=== PATIENT | male | born 1980 | race Caucasian/White ===

== ENCOUNTER 2016-07-16 17:58 | Emergency (ER) | payer OTHER ==
[~2016-07-16] VITALS: Ht 172.7 cm; Wt 109.7 kg
[~2016-07-16 17:58] MED LIST: FIORTAB4 PO; Z.0.NO CURRENT MEDS
[2016-07-16 18:03] VITALS: BP 135/88; PULSE 85; RESP 18; TEMP 99; O2SAT 99
--- NOTE | 2016-07-16 18:09 | PD ---
HPI Chief Complaint: Foreign Body Time Seen by Provider: 18:09 Travel History International Travel<30 days: No Contact w/Intl Traveler<30days: No Traveled to known affect area: No History of Present Illness HPI 36-year-old male presents to the ED for evaluation of foreign body sensation of the right eye. Onset approximately noon today. 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 He notes a dark spot on the edge of the-colored part of his eye that is not normally there. He endorses increased tearing. Denies vision changes, headache, dizziness, pain with ocular motions, nausea or vomiting. He flushed the eye with water, saline drops and Visine with no improvement of symptoms. [facility] Past Medical History Medical History: Denies Significant Hx Diminished Hearing: No Immunizations Current: Yes Tetanus Vaccination: > 5 Years Influenza Vaccination: No Past Surgical History Surgical History: No Previous Surgery Social History Alcohol Use: No Tobacco Use: Yes (occ) Substance Use: No Allergies-Medications (Allergen,Severity, Reaction): Coded Allergies: No Known Allergies (Unverified , 07/16/16) Reported Meds & Prescriptions Reported Meds & Active Scripts Active Polytrim Opth Drops (Polymyxin/Trimethoprim Sulfate) 10,000-0.1 Unit/Ml-% Soln 1 Drop RIGHT EYE Q6HR 5 Days Review of Systems Except as stated in HPI: all other systems reviewed are Neg Physical Exam Narrative GENERAL: Well-nourished, well-developed white male in no acute distress. SKIN: Focused skin assessment warm/dry. HEAD: Normocephalic. EYES: No scleral icterus. OD: Mildly injected with increased tearing. PERRLA. EOMI. There is a miniscule foreign body visible on the edge of the iris and the 7 o'clock position. FUNDUSCOPIC EXAM: The RIGHT funduscopic exam appeared within normal limits without papilledema, A-V nicking or blood associated with the optic disc. Fluorescein staining reveals uptake in the area of the foreign body. NECK: Supple, trachea midline. No JVD or lymphadenopathy. CARDIOVASCULAR: Regular rate and rhythm without murmurs, gallops, or rubs. RESPIRATORY: Breath sounds equal bilaterally. No accessory muscle use. GASTROINTESTINAL: Abdomen soft, non-tender, nondistended. MUSCULOSKELETAL: No cyanosis, or edema. Patient is ambulatory and moves the extremities spontaneously. BACK: Nontender without obvious deformity. No CVA tenderness. Data Data Last Documented VS Vital Signs Date Time Temp Pulse Resp B/P Pulse Ox O2 Delivery O2 Flow Rate FiO2 07/16/16 18:03 99.0 85 18 135/88 99 MDM Medical Decision Making Medical Screen Exam Complete: Yes Emergency Medical Condition: Yes Differential Diagnosis Foreign body versus corneal abrasion versus hordeolum versus other Narrative Course 36-year-old male presents to the ED for evaluation of foreign body sensation of the right eye. Onset approximately noon today. 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 He notes a dark spot on the edge of the-colored part of his eye that is not normally there. He endorses increased tearing. Denies vision changes, headache, dizziness, pain with ocular motions, nausea or vomiting. He flushed the eye with water, saline drops and Visine with no improvement of symptoms. Vitals reviewed. Physical exam reveals right eye is mildly injected with increased tearing. PERRLA. EOMI. There is a nonmetallic miniscule foreign body visible on the edge of the iris and the 7 o'clock position. Funduscopic exam appeared within normal limits without papilledema, A-V nicking or blood associated with the optic disc. Fluorescein staining reveals uptake in the area of the foreign body. Foreign body removal was performed. Please my procedure note for details. Patient has a miniscule corneal abrasion. He is prescribed Polytrim one drop 4 times a day 3-5 days. He is instructed to instill the medication as prescribed, return for worsening symptoms, otherwise follow up with the agronomy advisor. He indicated understanding of the instructions and is agreeable to the care plan. He is stable and discharged home. Procedures Procedure Narrative Foreign body removal: Single drop of proparacaine was instilled into the right eye. A Q-tip was used to gently remove a minuscule foreign body from the 7 o' clock position of the outer edge of the iris. Fluorescein staining reveals a 1mm corneal abrasion in the same area. The eye was flushed with copious irrigation. Patient tolerated procedure well. Diagnosis Primary Impression: Corneal abrasion, right Qualified Code: S05.01XA - Corneal abrasion, right, initial encounter Additional Impressions: FOREIGN BODY IN CORNEA, RIGHT EYE, INITIAL ENCOUNTER History of retained foreign body fully removed Referrals: Manager Transit Patient Instructions: Corneal Abrasion (ED), Eye Foreign Body (ED), General Instructions Additional Instructions: Rest, hydrate. Instill Polytrim drops 1 drop every 6 hours for the next 3-5 days. Follow-up with the agronomy advisor. Return to the ED if your symptoms do not improve within 24 hours. Return to the ED for any urgent or emergent medical condition. Med/Other Pt SpecificInfo: Prescription(s) given Scripts Polymyxin B-Trimethoprim Opth Drops (Polytrim Opth Drops)10,000-0.1 Unit/Ml-% Soln1 Drop RIGHT EYE Q6HR 5 Days Ref 0 Prov:William Ramirez MD 07/16/16 Disposition: 01 DISCHARGE HOME Condition: Stable Maria Isabel Rodriguez Jul 16, 2016 18:09
[2016-07-16] MEDS ORDERED: POLY10O RIGHT EYE (18:24)
== END 2016-07-16 19:14 | disposition home or self-care (01) ==
LOC: PHEFT 17:58
DX: T15.01XA Foreign body in cornea, right eye, initial encounter (principal); S00.251A Superficial foreign body of right eyelid and periocular area, initial encounter; Z72.0 Tobacco use; X58.XXXA Exposure to other specified factors, initial encounter; Y99.0 Civilian activity done for income or pay
CPT/HCPCS: 65220

== ENCOUNTER 2016-08-26 20:15 | Emergency (ER) | payer OTHER ==
[~2016-08-26] VITALS: Ht 172.7 cm; Wt 102.3 kg
[~2016-08-26 20:15] MED LIST changes: -FIORTAB4 PO; +POLY10O RIGHT EYE; -Z.0.NO CURRENT MEDS
[2016-08-26 20:17] VITALS: BP 123/87; PULSE 95; RESP 16; TEMP 99; O2SAT 100
[2016-08-26] MEDS ORDERED: TETANUS/DIPHTHERIA TOXOID ADULT 0.5 ML VIAL IM ONE (21:15)
[2016-08-26] MEDS ORDERED: PROPARACAINE HCL 0.5% OPHT SOLN 15 ML BTL RIGHT EYE ONE (21:15)
[2016-08-26] MEDS ORDERED: TRIMSOL RIGHT EYE (21:24)
--- NOTE | 2016-08-26 21:37 | PD ---
HPI Chief Complaint: Foreign Body Time Seen by Provider: 20:50 Travel History International Travel<30 days: No Contact w/Intl Traveler<30days: No Traveled to known affect area: No History of Present Illness HPI 36-year-old male presents to the emergency department for complaint of foreign body sensation to right eye. Patient states he did to the mirror and noticed a black dot on the lateral aspect to the iris area of his right eye. Patient does not wear corrective lenses. Patient's had no change in his vision. Patient has noted some injection of the eye. 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 Patient states noted symptoms proximate hour ago. Patient initially was informed of no redness of the eye by his spouse and then started noticing symptoms subsequently. Patient was seen for similar symptoms approximately 2 months ago. Patient does not know his tetanus status. Patient is not diabetic. Patient rates discomfort/irritation 2/10 intensity. PFSH Past Medical History Narrative Medical Corneal abrasion, no surgeries, tobacco use; nursing notes reviewed Diminished Hearing: No Immunizations Current: Yes ?: Not Social History Alcohol Use: No Tobacco Use: Yes (1/2PPD) Substance Use: No Allergies-Medications (Allergen,Severity, Reaction): Coded Allergies: No Known Allergies (Unverified , 08/26/16) Reported Meds & Prescriptions Reported Meds & Active Scripts Active Polymyxin B-Trimethoprim Opth Drops 10,000-0.1 Unit/Ml-% Soln 1 Drop RIGHT EYE Q6HR 5 Days Review of Systems Except as stated in HPI: all other systems reviewed are Neg General / Constitutional: No: Fever Eyes: Positive: Foreign Body Sensation, No: Diploplia, Blurred Vision, Photophobia, Drainage, Tearing HENT: No: Congestion Respiratory: No: Cough, Shortness of Breath Hematologic/Lymphatic: No: Lymph Node Enlargement Physical Exam Narrative GENERAL: SKIN: Warm and dry. HEAD: Normocephalic. EYES: No scleral icterus. No injection or drainage. Bilateral pupils equal round reactive to light. Extra ocular muscles intact. Right eye mild injection without drainage no purulent drainage direct inspection reveals a foreign body at the medical physician of the cornea just over the lateral aspect of the iris. Fluorescein uptake noted. No dendritic changes. No other foreign body identified with inspection of the eye. No papilledema by funduscopic exam, disc margins sharp. Visual acuities both eyes 20/13 left eye 20/13 right eye 20/15. NECK: Supple, trachea midline. No JVD or lymphadenopathy. Data Data Last Documented VS Vital Signs Date Time Temp Pulse Resp B/P Pulse Ox O2 Delivery O2 Flow Rate FiO2 08/26/16 20:17 99.0 95 16 123/87 100 Orders Proparacaine 0.5% Opth Soln (Alcaine 0.5 (08/26/16 21:15) Tetanus/Diphtheria Tox Adult (Tetanus/Di (08/26/16 21:15) Eye Irrigation (08/26/16 21:22) MDM Medical Decision Making Medical Screen Exam Complete: Yes Emergency Medical Condition: Yes Medical Record Reviewed: Yes Differential Diagnosis Foreign body, corneal abrasion, conjunctivitis Narrative Course On direct inspection of the right eye at the 9 o'clock position there is an obvious small pinpoint foreign body with some mild fluorescein uptake at the site. After using instilled proparacaine to anesthetize the eye with a Q-tip was used to remove the foreign body. No obvious retained foreign body identified or obvious rust ring or tattooing. Eye was irrigated copiously with normal saline. Eye was reexamined with 2 mm corneal abrasion identified. Patient tolerated foreign body removal well. Tetanus status updated. Patient provided a prescription for polymyxin B drops. Patient encouraged to follow-up with financial services intern for repeat eye exam and to use eye protection goggles and place of work. Diagnosis Primary Impression: Corneal abrasion, right Qualified Code: S05.01XA - Corneal abrasion, right, initial encounter Additional Impression: Corneal foreign body Qualified Code: T15.01XA - Corneal foreign body, right, initial encounter Referrals: Activity Coordinator call for appointment Patient Instructions: General Instructions Additional Instructions: Wear protective eye goggles at work Do not rub your eyes May apply cool compresses intermittently for next 12-24 hours for comfort as needed May use ibuprofen/Advil/Motrin 6 and a milligrams as often as every 6 hours or 800 mg as often as every 8 hours for pain associated with inflammation Follow-up with financial services intern call office for follow-up appointment on Monday Return to the emergency department for any concerns or change in condition Med/Other Pt SpecificInfo: Prescription(s) given Scripts Polymyxin B-Trimethoprim Opth Drops 10,000-0.1 Unit/Ml-% Soln1 Drop RIGHT EYE Q6HR 5 Days Ref 0 Prov:Shantelle Ríos MD 08/26/16 Disposition: 01 DISCHARGE HOME Condition: Stable Shantelle Ríos MD August 26, 2016 21:37
== END 2016-08-26 22:09 | disposition home or self-care (01) ==
LOC: PHEFT 20:15
DX: T15.01XA Foreign body in cornea, right eye, initial encounter (principal); F17.200 Nicotine dependence, unspecified, uncomplicated; X58.XXXA Exposure to other specified factors, initial encounter; Z23 Encounter for immunization
CPT/HCPCS: 65220; 90471; 90714